=== PATIENT | male | born 1950 | race Caucasian/White ===

== ENCOUNTER 2021-11-23 08:00 | Outpatient (CLI) | payer MEDICARE, OTHER | END 2021-11-23 23:59 | LOC: LAB.S 08:00 | PROVIDERS: ATTEND Physician Assistant Medical | DX: R05.9 Cough, unspecified (principal); R07.0 Pain in throat; Z20.822 Contact with and (suspected) exposure to COVID-19 | CPT/HCPCS: 87070; U0004 ==

== ENCOUNTER 2023-03-13 00:37 | Outpatient (CLI) | payer MEDICARE, OTHER | END 2023-03-13 02:00 | disposition critical access hospital (66) | LOC: EMS 00:37 | DX: R10.10 Upper abdominal pain, unspecified (principal); R14.0 Abdominal distension (gaseous); R14.2 Eructation | CPT/HCPCS: A0425; A0429 ==

== ENCOUNTER 2023-03-13 01:12 | Emergency (ER) | payer MEDICARE, OTHER ==
[2023-03-13 01:34] LABS: BASOPHILS % (AUTO) 0.2 %; EOSINOPHILS % (AUTO) 0.5 %; HCT - HEMATOCRIT 50.5 % (42.0-52.0); HGB - HEMOGLOBIN 16.9 g/dL (14.0-18.0); LYMPHOCYTES # (AUTO) 1.6 10^3/uL (1.5-3.5); MEAN CORPUSCULAR HEMOGLOBIN 31.6 pg (27.0-31.0); MEAN CORPUSCULAR HGB CONC 33.5 g/dL (32.0-36.0); MEAN CORPUSCULAR VOLUME 94.4 fL (80.0-94.0); MEAN PLATELET VOLUME 9.9 fL (7.4-11.4); MONOCYTES # (AUTO) 0.6 10^3/uL (0.0-1.0); MONOCYTES % (AUTO) 6.9 %; NEUTROPHILS # (AUTO) 6.2 10^3/uL (1.5-6.6); PLT - PLATELET COUNT 174 10^3/uL (130-450); RED BLOOD COUNT 5.35 10^6/uL (4.70-6.10); RED CELL DISTRIBUTION WIDTH 15.9 % (12.0-15.0); WHITE BLOOD COUNT 8.5 x10^3/uL (4.8-10.8)
[2023-03-13 01:45] LABS: ALBUMIN 4.6 g/dL (3.2-5.5); ALBUMIN/GLOBULIN RATIO 1.5 (1.0-2.2); BILIRUBIN,TOTAL 1.6 mg/dL (0.2-1.0); CALCIUM 9.3 mg/dL (8.5-10.3); POTASSIUM 3.8 mmol/L (3.5-5.0); TOTAL PROTEIN 7.6 g/dL (6.7-8.2)
[2023-03-13 01:47] LABS: BILIRUBIN,URINE NEGATIVE (NEGATIVE); GLUCOSE, URINE (UA) NEGATIVE (NEGATIVE); KETONES,URINE (UA) TRACE mg/dL (NEGATIVE); LEUKOCYTE ESTERASE, URINE NEGATIVE (NEGATIVE); NITRITE,URINE NEGATIVE (NEGATIVE); OCCULT BLOOD,URINE NEGATIVE (NEGATIVE); PH,URINE 7.5 PH (5.0-7.5); PROTEIN,URINE NEGATIVE (NEGATIVE); UROBILINOGEN,URINE 0.2 (NORMAL) E.U./dL (NORMAL)
[2023-03-13 01:52] LABS: CLARITY,URINE CLEAR (CLEAR)
--- NOTE | 2023-03-13 02:55 | ED Physician Documentation ---
PD HPI ABD PAIN - Stated complaint Stated Complaint: ABD PX - Chief complaint Chief Complaint: Abd Pain - History obtained from History obtained from: Patient - History of Present Illness Timing - details: Abrupt onset - Additional information Additional information: HPI from patient. Patient c/o abrupt onset RUQ and epigastric pain at approximately 9:30 PM ton ight. Initially 8/10, improved to 5/10 by the time of ED arrival. BIBA. Denies nausea, vomiting. He describes the pain as dull and bloating sensation , waxing and waning without exacerbating or ameliorating factors. Denies h/o similar symptoms. Only previous abdominal surgery was umbilical hernia repair. Review of Systems Constitutional: denies: Fever, Chills, Sweats Cardiac: reports: Reviewed and negative Respiratory: reports: Reviewed and negative GI: reports: Abdominal Pain, Abdominal Swelling. denies: Nausea, Vomiting, Constipation, Diarrhea, Hematemesis, Bloody / black stool : denies: Dysuria, Frequency, Hematuria Musculoskeletal: denies: Back pain PD PAST MEDICAL HISTORY - Past Medical History Past Medical History: Yes Cardiovascular: Congestive heart failure, Hypertension, Atrial fibrillation Neuro: Other GI: Hiatal hernia HEENT: Macular degeneration Psych: Depression Derm: Other Other Past Medical History: Squamous Cell Carcinoma; Vertigo: Sick Sinus Syndrome; Adenocarcinoma; Retinopathy: [place]'s Disease - Past Surgical History Past Surgical History: Yes General: Hiatal hernia repair, Other Ortho: Other HEENT: Tonsil/Adenoidectomy, Other - Present Medications Home Medications: Ambulatory Orders Medication Instructions Recorded Confirmed amLODIPine [Norvasc] 5 mg PO DAILY 04/12/15 03/13/23 Aspirin [[place] Aspirin] 81 mg PO DAILY 03/13/23 03/13/23 Diclofenac Submicronized 35 mg PO DAILY 03/13/23 03/13/23 [Diclofenac] Ondansetron Odt [Zofran Odt] 4 mg TL Q6H PRN #14 tablet 03/13/23 Sildenafil Citrate [Sildenafil] 03/13/23 03/13/23 Tamsulosin HCl [Flomax] 0.4 mg PO DAILY 03/13/23 03/13/23 Testosterone Cypionate 0.4 ml TOP DAILY 03/13/23 03/13/23 [Depo-Testosterone] oxyCODONE [Roxicodone] 5 mg PO Q4-6H PRN #20 tablet 03/13/23 - Allergies Allergies/Adverse Reactions: Allergies Allergy/AdvReac Type Severity Reaction Status Date / Time No Known Drug Allergies Allergy Verified 03/13/23 01:25 - Social History Does the pt smoke?: No Smoking Status: Never smoker Does the pt drink ETOH?: No Does the pt have substance abuse?: No - Immunizations Immunizations are current?: Yes - POLST Patient has POLST: No PD ED PE NORMAL - Vitals Vital signs reviewed: Yes - General General: Alert and oriented X 3, Well developed/nourished, Other (appears uncomfortable, mild-moderate painful distress) - Cardiac Cardiac: RRR, No murmur - Respiratory Respiratory: No respiratory distress, Clear bilaterally - Abdomen Abdomen: Normal bowel sounds, Soft, Non distended, Other (mild TTP RUQ without rebound or guarding) - Back Back: No CVA TTP - Derm Derm: Normal color, Warm and dry Results - Vitals Vitals: Oxygen O2 Source Room air - EKG (time done) No standard instances EKG releavant findings:: EKG personally interpreted by author of this note. Relevant findings are: Rate: Rate (enter#) (51) Rhythm: Sinus bradycardia Jean: LAD (borderline) Intervals: Normal CA QRS: Normal Ischemia: Normal ST segments Computer interpretation: Disagree with computer (no ST abnormalities) - Labs Labs: Laboratory Tests 03/13/23 03/13/23 03/13/23 01:28 01:28 01:40 WBC 8.5 RBC 5.35 Hgb 16.9 Hct 50.5 MCV 94.4 H MCH 31.6 H MCHC 33.5 RDW 15.9 H Plt Count 174 MPV 9.9 Neut # (Auto) 6.2 Lymph # (Auto) 1.6 [place] # (Auto) 0.6 Eos # (Auto) 0.0 Baso # (Auto) 0.0 Absolute Nucleated RBC 0.00 Nucleated RBC % 0.0 Sodium 139 Potassium 3.8 Chloride 100 L Carbon Dioxide 27 Anion Gap 12.0 BUN 17 Creatinine 1.0 Estimated GFR (MDRD) 73 L Glucose 141 H Calcium 9.3 Total Bilirubin 1.6 H AST 34 ALT 35 Alkaline Phosphatase 40 L Total Protein 7.6 Albumin 4.6 Globulin 3.0 Albumin/Globulin Ratio 1.5 Lipase 43 Urine Color YELLOW Urine Clarity CLEAR Urine pH 7.5 Ur Specific [place] 1.015 Urine Protein NEGATIVE Urine Glucose (UA) NEGATIVE Urine Ketones TRACE Urine Occult Blood NEGATIVE Urine Nitrite NEGATIVE Urine Bilirubin NEGATIVE Urine Urobilinogen 0.2 (NORMAL) Ur Leukocyte Esterase NEGATIVE Ur Microscopic Review NOT INDICATED Urine Culture Comments NOT INDICATED - Rads (name of study) CT A/P Relevant Findings:: Prelim report reviewed, See rad report PD Medical Decision Making - ED course Complexity details: reviewed results, re-evaluated patient, considered differential, d/w patient ED course: Given 1mg IV dilaudid and 15mg IV toradol, and patient reports excellent pain relief with these medications when reevaluated. Normal CBC, mild hyperglycemia (141) with normal kidney function tests and electrolytes. LFTs normal except 1.[address] A/P shows layering gallstones without evidence of cholecystitis. Results d/w patient as is the diagnosis of biliary colic. Advised to follow up with general surgery and return precautions discussed. prescriptions for oxycodone and ondansetron are e-prescribed to patient's pharmacy of choice. I am prescribing a short course of short-acting opioid pain medication for this patient. I have reviewed the patients [employer] and no concerning findings were noted. I have discussed that the opioids are for short term therapy only, and will not be refilled from the ED. Departure - Departure Disposition: 01 Home, Self Care Clinical Impression: Cholelithiasis Qualifiers: Cholelithiasis location: gallbladder Cholecystitis presence: without cholecystitis Biliary obstruction: without biliary obstruction Qualified Code(s): K80.20 - Calculus of gallbladder without cholecystitis without obstruction Condition: Good Instructions: ED Gallstone W Biliary Colic Prescriptions: oxyCODONE [Roxicodone] 5 mg PO Q4-6H PRN #20 tablet PRN Reason: Pain Ondansetron Odt [Zofran Odt] 4 mg TL Q6H PRN #14 tablet PRN Reason: Nausea / Vomiting Comments: The CAT scan of your abdomen and pelvis demonstrates gallstones in your gallbladder. The location and description of your pain would be consistent with pain due to gallstones (biliary colic). Your blood tests were mostly unremarkable. As we discussed, one of your liver tests (bilirubin) was mildly elevated, which is often seen with gallstones that are causing symptoms. The rest of the liver function tests were normal, which, of course, is a good sign. Given the reassuring blood tests and the excellent pain relief achieved with ju st the 1 dose of pain medication (you were given 2 different pain medications but a single dose of each), it is safe and appropriate to discharge at this time. You should seek follow-up with a general surgeon for reevaluation; this might require referral from your primary care provider depending on how your insurance works. A general surgeon can reevaluate you and discuss with you whether definitive treatment would be appropriate (definitive treatment would be removal of the gallbladder, although not everyone with gallstones needs the gallbladder removed). I have electronically submitted prescriptions for oxycodone (opiate/narcotic pain medication) and ondansetron (antinausea medication) to the [facility] in [place]. I am prescribing a short course of narcotic pain medication for you. These are potentially dangerous and addictive medications that should be used carefully. These medications may constipate you. Take an [id number] stool softener (docusate) twice daily with plenty of water while taking these medications. If you go 24 hours without a bowel movement, take [id number] miralax, per package instructions. Do not drink or drive while taking these medications. If you received narcotic or sedating medications while in the emergency department, do not drive for 24 hours. Store this medication in a safe, secure place and out of reach of children. It is a violation of federal law to give or sell this medication to another person or to use in a manner other than prescribed. The ED will not refill narcotic prescriptions, including prescriptions lost or stolen. To dispose of unwanted medications: 1. [facility] at [address] in [place] has a medication drop box. They accept prescription medications (in pill form) Tuesday through Tuesday 9:00 a.m. to 5:00 p.m. 2. The [facility] [employer] accepts prescription medications (in pill form only) for disposal year round. Call for more information. 3. Contact the [facility] for the next [facility] sponsored prescription drug collection event. , [phone], or [phone]; Discharge Date/Time: 03/13/23 05:58
[2023-03-13] MEDS ORDERED: KETOROLAC 15 MG/ML VIAL IVP STA (03:12)
[2023-03-13] MEDS ORDERED: HYDROmorphone 1 MG/ML CARPUJECT IVP STA (03:12)
[2023-03-13] MEDS ORDERED: SODIUM CHLORIDE 0.9% 500 ML IV STA (03:13)
[2023-03-13] MEDS ORDERED: iohexoL-300 100 ML VIAL ONE (03:27)
[2023-03-13] MEDS ORDERED: iohexoL-300 100 ML VIAL IVP ONE (04:14)
[2023-03-13 05:58] VITALS: BP 130/60
--- NOTE | 2023-03-13 11:41 | CT Report ---
PROCEDURE: CT abdomen and pelvis with contrast INDICATIONS: abd. pain CONTRAST: 100 ml omni 300 TECHNIQUE: After the administration of contrast, 5 mm thick sections acquired from the diaphragms to the symphys is. 5 mm thick coronal and sagittal reformats were acquired. For radiation dose reduction, the foll owing was used: automated exposure control, adjustment of mA and/or kV according to patient size. COMPARISON: None FINDINGS: Lower thorax: Dependent atelectasis noted in both lung bases Liver: Normal in size and attenuation. No contour deformity present. Biliary system: Layering calculi noted in the lumen of the gallbladder without evidence of pericholec ystic inflammatory change Pancreas: Unremarkable without mass or inflammation evident. Spleen: Normal in size and density. Adrenals: Normal morphology and density. Reproductive system: Unremarkable as visualized. Urinary system: Normal renal size and attenuation. No renal calculi, hydronephrosis, or solid mass p resent. Urinary bladder unremarkable. 2.3 cm simple left renal cyst Gastrointestinal system: The bowel appears unremarkable with no evidence of bowel obstruction or inf lammation. The stomach appears unremarkable. Appendix: No findings to suggest acute appendicitis. Peritoneal spaces: No mesenteric or retroperitoneal adenopathy. No free air. No free fluid. Vasculature: The IVC, aorta and iliac vasculature are unremarkable. Musculoskeletal: Normal bone mineralization. No acute fractures. Right inguinal hernia contains fat without bowel involvement IMPRESSION: No acute CT findings in the abdomen and pelvis. Cholelithiasis without acute cholecystitis Reviewed by: Gustavo Benavides MD on 03/13/2023 10:40 AM LACY Approved by: Gustavo Benavides MD on 03/13/2023 10:40 AM AKLULU Station ID: [id number]
== END 2023-03-13 05:58 | disposition home or self-care (01) ==
LOC: ED 01:12
DX: K80.20 Calculus of gallbladder without cholecystitis without obstruction (principal)
CPT/HCPCS: 36415; 74177; 80053; 81003; 83690; 85025; 93005; 96374; 99284; 99285; J1170; Q9967; 81001; 87086